=== PATIENT | female | born 1995 | race Asian ===

== ENCOUNTER → 2023-12-22 07:51 | Outpatient (CLI) | payer OTHER, SELFPAY ==
--- NOTE | 2023-12-22 | DI.ECHO.S_ITS ---
[facility] +---------+ : : [address] : [place] [address] : : : : [id number] : : : : Phone: [phone]+ Echocardiogram Report + + :Name: JENNY MAE Study Date: 12/22/2023 Height: 63 in : :[facility] ReadingLocation: Weight: 194 lb : : Gender: Female BSA: 1.9 m2 : :: 1995 Age: 28 yrs BP: 132/87 mmHg: :Reason For Study: MURMUR : :Ordering Physician: SMITA, : :MAURI Delgado Performed By: Brennan Vazquez : :Referring: MAURI ORDOÑEZ : + + Interpretation Summary The ejection fraction is estimated to be 60-65%. Diastolic parameters suggest probable normal left ventricular diastolic function and normal filling pressures. The right ventricular systolic function is normal. Pulmonary artery pressures cannot be estimated because of the lack of a measurable TR jet velocity. No significant valvular abnormality. Procedure: A two-dimensional transthoracic echocardiogram with color flow and Doppler was performed. The study quality was technically adequate. There is no prior echocardiogram noted for this patient. The patient was in normal sinus rhythm during the exam. The heart rate ranged between 77-101 bpm during the study. Left Ventricle: The left ventricle is normal in size and wall thickness. The ejection fraction is estimated to be 60-65%. Left ventricular wall motion is normal. Diastolic parameters suggest probable normal left ventricular diastolic function and normal filling pressures. Right Ventricle: The right ventricle is normal in size, thickness and function. The right ventricular systolic function is normal. Atria: The left atrial size is normal. Right atrial size is normal. Mitral Valve: The mitral valve is normal in structure and function. There is no mitral valve stenosis. There is no mitral regurgitation noted. Aortic Valve: The aortic valve is trileaflet. There is no aortic valve stenosis. No aortic regurgitation is present. Tricuspid Valve: The tricuspid valve is normal in structure and function. There is no tricuspid stenosis. There is a trace or physiologic amount of tricuspid regurgitation. Pulmonary artery pressures cannot be estimated because of the lack of a measurable TR jet velocity. Pulmonic Valve: The pulmonic valve is normal in structure and function. There is no pulmonic valvular stenosis. There is no pulmonic valvular regurgitation. Great Vessels: The aortic root is normal size. The dimensions of the ascending aorta are normal. The inferior vena cava was not visualized. Pericardium/ Pleura There is no pericardial effusion. There is no pleural effusion. MMode/2D Measurements & Calculations LVIDd: 4.2 cm LVOT diam: 1.9 cm LVIDs: 2.8 cm Ao root diam: 2.5 cm FS: 33.1 % asc Aorta Diam: 2.6 cm IVSd: 0.84 cm Ao Arch Diam (Prox Trans): 2.2 cm LVPWd: 0.87 cm LV smallwood. diameter/BSA (cm/m^2): 2.2 LV sys. diameter/BSA (cm/m^2): 1.5 LA A2 area: 12.6 cm2 RA long axis: 3.8 cm LA A4 area: 10.0 cm2 RA area: 11.0 cm2 LA length (vol): 4.4 cm RA vol: 27.4 ml LA vol: 24.5 ml RA : 14.4 ml/m2 LA vol index: 12.8 ml/m2 RVD1 (basal): 3.3 cm RVD2 (mid): 2.7 cm TAPSE: 2.1 cm Doppler Measurements & Calculations Ao V2 max: 160.2 cm/sec LVOT Max Arias: 130.5 cm/sec Ao V2 mean: 98.3 cm/sec LV V1 max P.8 mmHg Ao max P.3 mmHg LV V1 VTI: 25.2 cm Ao mean P.6 mmHg ALISON(I,D): 2.6 cm2 Ao V2 VTI: 27.3 cm ALISON(V,D): 2.3 cm2 sev ratio: 0.92 ALISON indexed to BSA (cm^2/m^2): 1.4 MV E max arias: 111.4 cm/sec PA V2 max: 124.8 cm/sec MV A max arias: 77.1 cm/sec PA V2 mean: 89.3 cm/sec MV E/A: 1.4 PA mean P.5 mmHg Med Peak E' Arias: 13.3 cm/sec PA pr(Accel): 36.2 mmHg E/E' med: 8.4 Lat Peak E' Arias: 17.8 cm/sec E/E' lat: 6.3 E/e' average: 7.3 MV dec time: 0.17 sec SV(LVOT): 71.6 ml Reading Physician:ELDER
== END ==
PROVIDERS: PCP Nurse Practitioner Family; Referring Provider Nurse Practitioner Family; Visit Provider Nurse Practitioner Family
DX: R01.1 Cardiac murmur, unspecified (principal)
CPT/HCPCS: 93306